=== PATIENT | female | born 1955 | race Caucasian/White ===

== ENCOUNTER 2019-10-20 08:58 | Outpatient (CLI) | payer MEDICARE, MEDICAID, SELFPAY ==
--- NOTE | ~2019-10-20 | XR_ITS ---
EXAMINATION: XR lumbar spine 2-3V DATE: 10/20/2019 09:34 INDICATION: Low back pain TECHNIQUE: Anteroposterior and lateral views of the lumbar spine, and cone-down lateral view of the l umbosacral junction were obtained. COMPARISON: 04/17/2015 FINDINGS: There is moderate loss of intervertebral disc space height at L5-S1 and mild loss of interv ertebral disc space height at L2-3 and L4-5. The vertebral body heights and alignment are maintained. There is no fracture. Mild facet osteoarthritis is noted in the lower lumbar spine. Degenerative ost eophytes project from the anterior endplates of multiple vertebral bodies. Lumbar dextrocurvature per sists without significant change. IMPRESSION: 1. Moderate lumbar spondylosis without acute findings or significant interval change. Reviewed, dictated and finalized at location A. IMPRESSION: 1. Moderate lumbar spondylosis without acute findings or significant interval chiquita roa
--- NOTE | ~2019-10-20 | XR_ITS ---
EXAMINATION: XR hip BI wo pelvis INDICATION: Increasing hip pain TECHNIQUE: Three views of each hip are obtained. COMPARISON: 04/17/2015, 05/22/2010 FINDINGS: Bone alignment is normal. There is no fracture. There is chronic moderate bilateral the sof t tissues are unremarkable. Hip osteoarthritis. IMPRESSION: 1. Moderate bilateral hip osteoarthritis without acute findings. Reviewed, dictated and finalized at location A.
== END 2019-10-20 08:59 | disposition home or self-care (01) ==
PROVIDERS: PCP Family Medicine; Visit Provider Nurse Practitioner Family
DX: M25.552 Pain in left hip (principal); M47.817 Spondylosis without myelopathy or radiculopathy, lumbosacral region; M25.551 Pain in right hip; M16.0 Bilateral primary osteoarthritis of hip; M47.816 Spondylosis without myelopathy or radiculopathy, lumbar region
CPT/HCPCS: 72100; 73521

== ENCOUNTER 2019-11-08 08:30 | Outpatient (CLI) | payer MEDICARE, MEDICAID, SELFPAY ==
--- NOTE | ~2019-11-08 | XR_ITS ---
XR knee RT min 4V DATE: 11/08/2019 08:59 INDICATION: Bilateral knee pain TECHNIQUE: Standing AP, lateral and Cid views. [place] view. COMPARISON: None FINDINGS: There is osteopenia. No fracture or dislocation or joint effusion. No periosteal reaction or bone destruction. There is hypertrophic change of the tibial spines. There is mild periarticular spurring at the medial and lateral compartments and to a greater extent at the patella. There is mild chondrocalcinosis. IMPRESSION: Mild/moderate tricompartment osteoarthritis Chondrocalcinosis Osteopenia Reviewed, dictated and finalized at location A.
--- NOTE | ~2019-11-08 | XR_ITS ---
XR knee LT min 4V DATE: 11/08/2019 08:59 INDICATION: Bilateral knee pain. No injury. TECHNIQUE: Standing AP, lateral, Cid view; sunrise view COMPARISON: 07/16/2009 bilateral knees FINDINGS: Status post left total knee arthroplasty with patellar resurfacing. There is mild suprapatellar knee joint effusion. Superior pole patellar enthesopathy No fracture, dislocation, periosteal reaction or bone destruction is detected. IMPRESSION: Status post left total knee arthroplasty Mild knee joint effusion Reviewed, dictated and finalized at location A.
== END 2019-11-08 08:31 | disposition home or self-care (01) ==
PROVIDERS: PCP Family Medicine; Visit Provider Nurse Practitioner Family
DX: M25.561 Pain in right knee (principal); M25.562 Pain in left knee; M17.11 Unilateral primary osteoarthritis, right knee; M11.261 Other chondrocalcinosis, right knee; M85.861 Other specified disorders of bone density and structure, right lower leg; M25.462 Effusion, left knee; Z96.652 Presence of left artificial knee joint
CPT/HCPCS: 73564

== ENCOUNTER 2020-01-19 11:11 | Outpatient (NON) | payer MEDICARE, MEDICAID, SELFPAY ==
[2020-01-20 19:25] LABS: SARS-CoV-2 RNA PCR Negative
== END 2020-01-19 11:12 ==
LOC: ANHCOVIDDT 11:13
PROVIDERS: PCP Family Medicine; Visit Provider Family Medicine
DX: R68.89 Other general symptoms and signs (principal); Z20.828 Contact with and (suspected) exposure to other viral communicable diseases
CPT/HCPCS: 87635; C9803; U0003

== ENCOUNTER 2020-03-12 12:57 | Outpatient (CLI) | payer MEDICARE, MEDICAID, SELFPAY ==
--- NOTE | ~2020-03-12 | XR_ITS ---
EXAMINATION: XR lumbar spine 2-3V DATE: 03/12/2020 13:31 INDICATION: Dorsalgia. TECHNIQUE: 3 views of the lumbar spine were obtained. COMPARISON: Lumbar spine radiograph 04/17/2015 FINDINGS: There is 8 degrees dextrocurvature of thoracolumbar spine. Vertebral body heights are destiny l. There is mildly decreased disc height from L2-L3 through L4-L5 and moderately decreased disc heigh t at L5-S1. There is multilevel mild facet joint osteoarthritis. IMPRESSION: 1. Moderate lower lumbar spondylosis, worsened from 04/17/2015. Reviewed, dictated and finalized at location A. LINE POWER SHOVEL OPERATOR
--- NOTE | ~2020-03-12 | XR_ITS ---
EXAMINATION: XR thoracic spine 3V EXAM DATE: 03/12/2020 13:32 INDICATION: Dorsalgia. TECHNIQUE: Frontal and lateral projections of the thoracic spine as well as lateral swimmers projecti on of the upper thoracic spine for interpretation. There is no prior study for comparison. FINDINGS: Mild to moderate mid thoracic disc disease. Vertebral body heights relatively well-maintai mark. There are no bony erosions identified. Paraspinal soft tissue is unremarkable. IMPRESSION: Mild to moderate mid thoracic spondylosis. Reviewed, dictated and finalized at location B. LOPMENT DISABILITY SPECIALIST
--- NOTE | ~2020-03-12 | XR_ITS ---
EXAMINATION: XR cervical spine 4-5V EXAM DATE: 03/12/2020 13:31 INDICATION: Left-sided neck pain, no recent injury. TECHNIQUE: Cervical spine frontal, lateral, lateral swimmers, and open-mouth odontoid projections. There is no prior study for comparison. FINDINGS: There is mild to moderate diffuse cervical disc disease. There is moderate to severe cervi princess arthropathy. The vertebral bodies are aligned in the AP dimension. The odontoid process is intact . The lateral masses of C1 line up with C2. Prevertebral soft tissue and pre-dens space are within n ormal limits. There are no acute fractures identified. There are no bony erosions identified. IMPRESSION: Cervical moderate to severe arthropathy, mild to moderate disc disease. Reviewed, dictated and finalized at location B. TOLOGIC LINGUIST IMPRESSION: Cervical moderate to severe arthropathy, mild to moderate disc dise ase.
== END 2020-03-12 12:58 | disposition home or self-care (01) ==
PROVIDERS: PCP Family Medicine; Visit Provider Nurse Practitioner Family
DX: M47.817 Spondylosis without myelopathy or radiculopathy, lumbosacral region (principal); M47.813 Spondylosis without myelopathy or radiculopathy, cervicothoracic region
CPT/HCPCS: 72050; 72072; 72100